=== PATIENT | male | born 1995 | race Caucasian/White ===

== ENCOUNTER → 2024-01-16 14:36 | Outpatient (REF) | payer OTHER, SELFPAY | LOC: HWRAD 14:36 | PROVIDERS: ATTENDING PHYSICIAN Surgery Vascular Surgery; FAMILY PHYSICIAN Family Medicine | DX: R20.0 Anesthesia of skin (principal) | CPT/HCPCS: 71275; 74174; Q9967 ==

== ENCOUNTER → 2024-03-16 16:19 | Outpatient (REF) | payer OTHER, SELFPAY | LOC: DHSLP 16:19 | PROVIDERS: ATTENDING PHYSICIAN Internal Medicine Critical Care Medicine; FAMILY PHYSICIAN Family Medicine | DX: G47.30 Sleep apnea, unspecified (principal); R06.83 Snoring | CPT/HCPCS: 95800 ==